=== PATIENT | male | born 1995 | race Caucasian/White ===

== ENCOUNTER 2019-08-13 14:53 | Emergency (ER) | payer OTHER ==
[2019-08-13 14:58] VITALS: TEMP 100.1; BMI 23.6
--- NOTE | 2019-08-13 14:59 | PDOC ---
History of Present Illness - General Chief Complaint: Seizure Stated Complaint: SEIZURE Time Seen by Provider: 08/13/19 14:57 History Source: Patient Exam Limitations: No Limitations - History of Present Illness Initial Comments: 08/13/19 14:57 Pascual Milian is a 24M with PMH open heart surgery as a child on ASA and 2L home O2, epilepsy on Keppra 500mg TID, presenting with seizure in the setting of decreased Keppra use. Patient lives [facility] and is in [place] on vacation, but is unable to return home due to covid pandemic. Takes Keppra 500mg TID, but has not been able to get refill dose and has been taking 500mg QD to prolong doses. Today at home had ~2 minute tonic/clonic seizure with tongue biting and without bowel/bladder incontinence, per EMS was back to baseline without post-ictal state. Last seizure November 2018. Patient denies any covid-19 exposures, no sick contacts at home, denies fever, chills, nausea, vomiting, diarrhea. Eating/drinking well, getting enough sleep, no new stressors, no pro-drome, denies tobacco/drugs/alcohol. Complains of significant R shoulder pain, has dislocated R shoulder at least 3x in the past 2/2 seizures. Had a significant cardiac surgery as a child. 08/13/19 16:00 Spoke to family, patient has intellectual disability, thinks at level of 12 year old. Past History - Past Medical History Allergies/Adverse Reactions: Allergies Allergy/AdvReac Type Severity Reaction Status Date / Time No Known Allergies Allergy Verified 08/13/19 14:55 Home Medications: Ambulatory Orders levETIRAcetam [Keppra -] 500 mg PO TID 08/13/19 levETIRAcetam [Keppra -] 500 mg PO TID #180 tablet 08/13/19 Review of Systems - Review of Systems Able to Perform ROS?: Yes Constitutional: No: Symptoms Reported HEENTM: No: Symptoms Reported Respiratory: No: Symptoms reported Cardiac (ROS): No: Symptoms Reported ABD/GI: No: Symptoms Reported : No: Symptoms Reported Musculoskeletal: Yes: Joint Pain, Joint Swelling Integumentary: No: Symptoms Reported Neurological: Yes: Seizure. No: Headache, Numbness, Paresthesia, Unsteady Gait, Dizziness Endocrine: No: Symptoms Reported Hematologic/Lymphatic: No: Symptoms Reported All Other Systems: Reviewed and Negative *Physical Exam - Physical Exam General Appearance: Yes: Nourished, Appropriately Dressed. No: Apparent Distress HEENT: positive: EOMI, JAMES, Normal Voice, Symmetrical, Pharynx Normal, Hearing Grossly Normal. negative: Scleral Icterus (R), Scleral Icterus (L), Pharyngeal Erythema, Tonsillar Exudate, Tonsillar Erythema Neck: positive: Trachea midline, Normal Thyroid, Supple. negative: Tender, Rigid, Lymphadenopathy (R), Lymphadenopathy (L) Respiratory/Chest: positive: Lungs Clear, Normal Breath Sounds, Other (large vertical well-healed incision scar to anterior chest). negative: Chest Tender, Respiratory Distress, Accessory Muscle Use, Crackles, Rales, Rhonchi, Stridor, Wheezing Cardiovascular: positive: Regular Rhythm, Regular Rate. negative: Murmur Gastrointestinal/Abdominal: positive: Normal Bowel Sounds, Flat, Soft. negative: Tender, Organomegaly, Pulsatile Mass, Guarding, Rebound Musculoskeletal: positive: Normal Inspection. negative: CVA Tenderness, CVA Tenderness (R), CVA Tenderness (L), Decreased Range of Motion, Vertebral Tenderness Extremity: positive: Normal Capillary Refill, Pelvis Stable, Other (BLE and LLE: exam normal, neurovascular intact. RUE: limited PROM at shoulder, full ROM at wrist and elbow, radial pulse 2+, sensation intact to LT, motor 5/5 all groups, no decreased sensation to the distribution of the right axillary nerve.). negative: Normal Inspection (R shoulder appears anteriorly displaced), Normal Range of Motion (R shoulder unable to fully ROM), Tender, Pedal Edema, Swelling, Calf Tenderness Integumentary: positive: Normal Color, Dry, Warm Neurologic: positive: mechanical oxidizer II-XII NML intact, Fully Oriented, Alert, Normal Mood/Affect, Normal Response, Motor Strength 5/5. negative: Sensory Deficit ED Treatment Course - LABORATORY CBC & Chemistry Diagram: 08/13/19 15:00 08/13/19 15:00 Medical Decision Making - Medical Decision Making 08/13/19 15:18 Patient presents with breakthrough seizures from underdosing on Keppra 2/2 inability to obtain. Also has possible R shoulder dislocation but RUE neurovascular intact. VS notable for rectal temp 100.1F, tachy to 126, HR 95/51, consistent with post-ictal phase vs. infectious etiology. Getting CMP/CBC, Keppra 1000mg loading dose, Ofirmev for pain and elevated temp, and CXR and R shoulder XR for eval dislocation. Will reduce shoulder dislocation if necessary. Will likely be eligible to be discharged home with neuro/clinic follow-up and course of home Keppra. 08/13/19 16:02 R shoulder anteriorly dislocated without Bankart or Hill-Sachs. CXR unremarkable. Will give 1mg Versed for anxiolysis and reduce. 08/13/19 16:56 R shoulder reduced. Axillary nerve sensation intact to LT. Ordering confirmatory XR. HR 101, patient is notably anxious, satting 97% on 2L NC. 08/13/19 17:43 Repeat shoulder XR shows appropriate reduction of shoulder. Stable for discharge home with Keppra sent to pharmacy. Discharge - Discharge Information Problems reviewed: Yes Clinical Impression/Diagnosis: Seizure Shoulder dislocation Qualifiers: Encounter type: initial encounter Laterality: right Qualified Code(s): S43.004A - Unspecified dislocation of right shoulder joint, initial encounter Condition: Improved - Admission No - Additional Discharge Information Prescriptions: levETIRAcetam [Keppra -] 500 mg PO TID #180 tablet - Follow up/Referral - Patient Discharge Instructions Patient Printed Discharge Instructions: DI for Shoulder Dislocation, DI for Seizure Disorder -- Adult Additional Instructions: Hoy fuiste evaluado por renetta convulsin. Hemos evaluado que arnold laboratorios son normales. Le hemos enviado a casa con 2 meses de davidson Keppra, tmelo 3 veces al da segn lo prescrito. Fue enviado al [facility] en . Tambin hemos reparado davidson hombro dislocado. Si experimenta ms convulsiones, dolor en el brazo, se disloca el hombro nuevamente o tiene debilidad o entumecimiento en los brazos o las piernas, regrese a la heather de emergencias. Today you were evaluated for a seizure. We have evaluated you are your labs are normal. We have sent you home with 2 months worth of your Keppra, please take it 3 times per day as prescribed. It was sent to the [facility] on . We have also fixed your dislocated shoulder. If you experience more seizures, arm pain, dislocate your shoulder again, or have weakness or numbness in your arms or legs, please return to the emergency room. Print Language: MACEDONIAN - Post Discharge Activity - Vital Signs Vital Signs: Vital Signs - 24 hr 08/13/19 08/13/19 14:56 17:15 Temperature 100.1 F H Pulse Rate 111 H Pulse Rate [ 111 H Apical] Respiratory 34 H 20 Rate Blood Pressure 95/51 L Blood Pressure 110/78 [Left Arm] O2 Sat by Pulse 94 L 94 L Oximetry (%) Vital Signs - Vital Signs Vital signs refused: No Pulse Rate: 101 Blood Pressure: 110/85 BP Location: Right Arm Blood Pressure position: Sitting
[2019-08-13] MEDS ORDERED: levETIRAcetam 500 MG/5 ML INJECTION VIAL IVPB ONE ×2 (15:00→15:14)
[2019-08-13] MEDS ORDERED: ACETAMINOPHEN 1000 MG/100 ML VIAL (NON FORMULARY) IVPB ONE (15:00)
[2019-08-13] MEDS ORDERED: ACETAMINOPHEN INJECTION 100 ML IVPB ONE (15:02)
[2019-08-13 15:46] LABS: HEMATOCRIT 54.5 % (35.4-49); HEMOGLOBIN 18.1 GM/dL (11.7-16.9); MCH 30.1 pg (25.7-33.7); MCHC 33.2 g/dl (32.0-35.9); MEAN CELL VOLUME 90.5 fl (80-96); MEAN PLT VOLUME 9.5 fl (7.5-11.1); PLATELET COUNT 138 K/MM3 (134-434); RBC 6.02 M/mm3 (4.00-5.60); RDW 14.6 % (11.9-15.9)
[2019-08-13 16:08] LABS: BILIRUBIN,TOTAL 0.9 mg/dL (0.2-1); BLOOD UREA NITROGEN 13.5 mg/dL (7-18); CALCIUM 9.1 mg/dL (8.5-10.1); POTASSIUM 4.9 mmol/L (3.5-5.1); TOT PROT 8.3 g/dl (6.4-8.2)
--- NOTE | 2019-08-13 16:15 | PDOC ---
Documentation entered by Yumi Sheridan SCRIBE, acting as scribe for Reji Grajeda MD. Reji Grajeda MD: This documentation has been prepared by the Arvin phipps Nirvannie, SCRIBE, under my direction and personally reviewed by me in its entirety. I confirm that the documentation accurately reflects all work, treatment, procedures, and medical decision making performed by me. Attending Attestation - Resident Resident Name: SanamAlex - ED Attending Attestation I have performed the following: I have examined & evaluated the patient, The case was reviewed & discussed with the resident, I agree w/resident's findings & plan, Exceptions are as noted - HPI HPI: 08/13/19 15:56 The patient is a 24 year old male with a significant past medical history of epilepsy (noncompliant with Keppra 500mg TID, last seizure 12/05) and unknown open heart surgery as a child (on ASA) who presents to the ED via EMS s/p seizure with right shoulder pain. As per patient, he has been noncompliant with his Keppra and only takes it QD because he lives in [facility] and is only on vacation in [place] and unable to return home and follow up with his doctors secondary to the current outbreak. Patients episode today lasted approximately 2 min with tongue biting. While in the ED, the patient complains of right shoulder pain similar to previous shoulder dislocations secondary to seizures. Allergies: NKDA - Physicial Exam PE: 08/13/19 16:22 Vitals: Triage Vital signs reviewed General Appearance: No acute distress, well nourished well developed, Head: Atraumatic, Cardiac: Regular rate and rhythym, no murmurs, no rubs, no gallops, Lungs: Clear to auscultation bilateral, good air movement bilaterally, Abdomen: Soft, non distended, normal bowel sounds, non tender to palpation Extremities: Decreased range of motion to right shoulder positive deformity Skin: Warm and dry, no rashes or lesions, no rash, no petechiae Neuro: AOX3; cranial Nerves 2-12 grossly intact, strength intact to all extremities, sensation intact to all extremities, Psych: Normal mood, normal affect - Medical Decision Making 08/13/19 15:58 24 year old male with a significant past medical history of epilepsy (noncompliant with Keppra 500mg TID, last seizure 12/05) and unknown open heart surgery as a child (on ASA) who presents to the ED via EMS s/p seizure with rig ht shoulder pain. Plan is: CBC CMP BGM EKG Keppra Ofirmev CXR R shoulder Xray 08/13/19 16:22 Patient with seizure secondary to being unable to fill his prescription for Keppra during the COVID pandemic Patient loaded with Keppra. Also with anterior shoulder dislocation neurovascularly intact no decreased sensation of the axillary nerve distribution Will attempt reduction and reassess. Dr. Finley to follow up after reduction. Discharge - Discharge Information Problems reviewed: Yes Clinical Impression/Diagnosis: Seizure Shoulder dislocation Qualifiers: Encounter type: initial encounter Laterality: right Qualified Code(s): S43.004A - Unspecified dislocation of right shoulder joint, initial encounter Condition: Improved - Additional Discharge Information Prescriptions: levETIRAcetam [Keppra -] 500 mg PO TID #180 tablet - Follow up/Referral - Patient Discharge Instructions Patient Printed Discharge Instructions: DI for Shoulder Dislocation, DI for Seizure Disorder -- Adult Additional Instructions: Hoy fuiste evaluado por renetta convulsin. Hemos evaluado que arnold laboratorios son normales. Le hemos enviado a casa con 2 meses de davidson Keppra, tmelo 3 veces al da segn lo prescrito. [facility] . Tambin hemos reparado davidson hombro dislocado. Si experimenta ms convulsiones, dolor en el brazo, se disloca el hombro nuevamente o tiene debilidad o entumecimiento en los brazos o las piernas, regrese a la heather de emergencias. Today you were evaluated for a seizure. We have evaluated you are your labs are normal. We have sent you home with 2 months worth of your Keppra, please take it 3 times per day as prescribed. It was sent to the [facility] on . We have also fixed your dislocated shoulder. If you experience more seizures, arm pain, dislocate your shoulder again, or have weakness or numbness in your arms or legs, please return to the emergency room. Print Language: NIGERIEN - Post Discharge Activity
[2019-08-13] MEDS ORDERED: MIDAZOLAM HCL 2 MG/2 ML SINGLE DOSE VIAL IVPUSH ONE (16:20)
[2019-08-13] MEDS ORDERED: MIDAZOLAM HCL 2 MG/2 ML SINGLE DOSE VIAL ONE (16:32)
[2019-08-13 18:23] VITALS: BP 110/85; PULSE 101
--- NOTE | 2019-08-14 14:42 | EKG ---
Test Reason : Blood Pressure : / mmHG Vent. Rate : 117 BPM Atrial Rate : 117 BPM P-R Int : 124 ms QRS Dur : 088 ms QT Int : 322 ms P-R-T Axes : 020 092 085 degrees QTc Int : 449 ms SINUS TACHYCARDIA POSSIBLE LEFT ATRIAL ENLARGEMENT RIGHTWARD AXIS BORDERLINE ECG NO PREVIOUS ECGS AVAILABLE Confirmed by PIPPA SCHNEIDER MD ([id number]) on 08/14/2019 2:42:26 PM Referred By: Confirmed By:PIPPA SCHNEIDER MD
== END 2019-08-13 18:24 | disposition home or self-care (01) ==
LOC: JER 14:53
PROC: 3E033GC Introduction of Other Therapeutic Substance into Peripheral Vein, Percutaneous Approach (ICD-10-PCS; principal; 2019-08-13)
PROC: 0RSJXZZ Reposition Right Shoulder Joint, External Approach (ICD-10-PCS; 2019-08-13)
DX: R56.9 Unspecified convulsions (principal); S43.004A Unspecified dislocation of right shoulder joint, initial encounter; Y99.9 Unspecified external cause status
CPT/HCPCS: 23650; 36415; 71046-TC-FY; 73030-TC-RT-FY; 80053; 85027; 93005; 93010; 96374; 96375; 99285-25; J0131